=== PATIENT | female | born 1955 | race Caucasian/White ===

== ENCOUNTER 2019-04-14 10:00 | Outpatient (RCR) | payer BC | END 2019-04-14 10:30 | disposition still patient (30) | LOC: PT 10:00 | DX: M54.41 Lumbago with sciatica, right side (principal); M54.42 Lumbago with sciatica, left side ==

== ENCOUNTER 2019-11-27 04:08 | Emergency (ER) | payer BC ==
[~2019-11-27] VITALS: Ht 160 cm; Wt 84.1 kg
[2019-11-27] MEDS ORDERED: MOBIC7.5 MG PO (04:20)
[2019-11-27] MEDS ORDERED: LIPITOR 40MG TA40 MG PO (04:20)
[2019-11-27] MEDS ORDERED: ZESTRIL20 M1 PO (04:20)
[2019-11-27] MEDS ORDERED: INDERAL 10MG10 MG PO (04:21)
[2019-11-27 05:25] LABS: EOS # 0.1 (0.04-0.40); EOS % 1.9 % (1.0-5.0); HEMOGLOBIN 11.7 g/dL (12.5-16.0); LYMPH# 2.8 (1.50-4.00); MEAN CELL VOLUME 90 fl (78-100); MEAN CORPUSCULAR HEMOGLOBIN 30 pg (27-31); MEAN CORPUSCULAR HGB CONC 33 g/dL (33-37); MEAN PLATELET VOLUME 9.6 fl (7.4-10.4); MONO # 0.6 (0.20-0.80); NEU # 3.1 (1.40-6.50); PLATELET COUNT 217 K/mm3 (130-400); RED BLOOD COUNT 3.88 M/mm3 (4.10-5.30); RED CELL DISTRIBUTION WIDTH 12.8 % (11.5-14.5); WHITE BLOOD COUNT 6.7 K/mm3 (4.8-10.8)
[2019-11-27 05:28] LABS: ALBUMIN 3.8 g/dL (3.4-4.8); POTASSIUM 3.9 mmol/L (3.5-5.1); SODIUM 140 mmol/L (136-145)
[2019-11-27 05:29] LABS: CALCIUM 8.7 mg/dL (8.3-10.5)
[2019-11-27 05:30] LABS: GLUCOSE 104 mg/dL (65-105); TOTAL PROTEIN 6.1 g/dL (6.2-8.1)
[2019-11-27 05:31] LABS: CARBON DIOXIDE 21 mmol/L (23-31)
[2019-11-27 05:32] LABS: TOTAL BILIRUBIN 0.2 mg/dL (0.2-1.2)
[2019-11-27 05:36] LABS: AST-SGOT 26 U/L (5-34)
[2019-11-27 05:37] LABS: ALT/SGPT 27 U/L (0-55)
[2019-11-27 05:43] LABS: TROPONIN-I < 0.03 ng/mL (<0.030)
[2019-11-27 06:48] VITALS: BP 110/65
== END 2019-11-27 06:48 | disposition home or self-care (01) ==
LOC: ED 04:08
PROVIDERS: Family Medicine
DX: S01.01XA Laceration without foreign body of scalp, initial encounter (principal); I95.1 Orthostatic hypotension; E86.9 Volume depletion, unspecified; W22.8XXA Striking against or struck by other objects, initial encounter; I10 Essential (primary) hypertension; Y92.002 Bathroom of unspecified non-institutional (private) residence as the place of occurrence of the external cause
CPT/HCPCS: J7030

== ENCOUNTER → 2019-12-06 | Outpatient (CLI) | payer BC ==
[2019-11-27 06:48] VITALS: BP 110/65
[~2019-12-06] MED LIST: INDERAL 10MG10 MG PO; LIPITOR 40MG TA40 MG PO; MOBIC7.5 MG PO; ZESTRIL20 M1 PO
== END ==
LOC: AMSURD 10:01
DX: Z48.00 Encounter for change or removal of nonsurgical wound dressing (principal)